=== PATIENT | male | born 1955 | race Caucasian/White ===

== ENCOUNTER 2020-05-16 01:41 | Outpatient (CLI) | payer MEDICARE, SELFPAY ==
[2020-05-17 17:16] LABS: SARS-CoV-2 RNA PCR Negative
== END 2020-05-16 01:42 | disposition home or self-care (01) ==
LOC: ANHCOVIDDT 01:41
PROVIDERS: PCP Family Medicine; Visit Provider Internal Medicine Gastroenterology
DX: Z01.812 Encounter for preprocedural laboratory examination (principal); Z20.822 Contact with and (suspected) exposure to COVID-19
CPT/HCPCS: C9803; U0003; U0005

== ENCOUNTER 2020-05-19 00:35 | Day surgery (SDC) | payer MEDICARE, SELFPAY ==
[2020-05-12 11:09] VITALS: BMI 34.2
[2020-05-19 07:02] VITALS: BP 188/98; PULSE 94; RESP 18; TEMP 36.7; O2SAT 95; BMI 33.5
[2020-05-19] MEDS: LACTATED RINGERS 1,000 ML 150 ML IV CONT (07:20)
--- NOTE | 2020-05-19 07:21 | WPDANESEPPF ---
Anes - Initial Pre Proc Eval Procedure: Operation Date: 05/19/20 08:00 Proposed Procedures p Screening Colonoscopy - Wellington Saldana MD Date/Time: 05/19/20 07:21 Surgeon: Wellington Saldana MD Pre Op Diagnosis: hx of colon polyps, hx colon CA Patient Data Age: 64 Gender: M Height: 1.73 m Weight: 100.2 kg Last Vital Signs Temp 36.7 C 05/19/20 07:02 Pulse 94 05/19/20 07:02 Resp 18 05/19/20 07:02 BP 188/98 H 05/19/20 07:02 Pulse Ox 95 05/19/20 07:02 Allergies Allergy/AdvReac Type Severity Reaction Status Date / Time atenolol AdvReac Unknown Other Verified 05/19/20 07:21 Home Medications Medication Instructions Recorded Confirmed Type duloxetine 60 mg capsule,delayed 60 mg PO DAILY #90 cap 11/20/19 05/12/20 Rx release nitroglycerin 0.4 mg sublingual 0.4 mg SUBLINGUAL Q5M PRN 02/26/20 05/12/20 History tablet amlodipine 2.5 mg tablet 2.5 mg PO DAILY #90 tablet 05/12/20 05/12/20 Rx carvedilol 25 mg tablet 25 mg PO Q12H #180 tablet 05/12/20 05/12/20 Rx furosemide 40 mg tablet 40 mg PO QAM #90 tablet 05/12/20 05/12/20 Rx isosorbide mononitrate 30 mg 30 mg PO DAILY #90 tablet 05/12/20 05/12/20 Rx tablet,extended release 24 hr losartan 50 mg tablet 50 mg PO DAILY #90 tablet 05/12/20 05/12/20 Rx rosuvastatin 20 mg tablet 20 mg PO DAILY #90 tablet 05/12/20 05/12/20 Rx sodium,potassium,mag sulfates 17.5 See Rx Instructions PO .COMPLEX 05/12/20 Rx gram-3.13 gram-1.6 gram oral soln #354 ml Patient hx anesthesia problems: none Family hx anesthesia problems: none PMFSH Past Medical History Medical History (Updated 10/29/19 @ 08:21 by Abdulaziz Weaver MD) CAD (coronary artery disease) Controlled diabetes mellitus History of colon cancer HLD (hyperlipidemia) Hypertension with heart disease Surgical History Surgical History History of cholecystectomy History of colon resection History of implantable cardiac defibrillator (ICD) Family History Family History Father Carcinoma of colon Mother Hypertension Social History Social History (Updated 02/26/20 @ 09:23 by Smitha Chang) Smoking packs per day: 1.5 Smoking cigarettes per day: 30.0 Years smoked: 5 Smoking pack-years: 7.50 Smoking status: Former smoker Tobacco type: cigarettes Second hand tobacco smoke exposure: No Smoking end date: 04/24/93 Alcohol intake: never Substance use: never Substance use type: does not use Living arrangements: alone Gender identity (if verbalized by the patient): Male Spiritual care concerns: No Anes - Eval Final PreProcedure Day of Procedure 05/19/20 07:21 Patient weight: obese Heart: regular rate and rhythm Lungs: clear to auscultation and normal air movement Airway: Mallampati scale class II Neurological: alert and oriented Last oral intake: >/= 8 hours ASA classification: III Emergent: no Anesthetic plan: proceed Anesthesia type and monitoring: general GIVS Informed Consent: The patient's anesthetic plan and its attendant risks and benefits were discussed with the patient/family/POA. Questions were solicited and answers provided to the satisfaction of the patient/family/POA.
--- NOTE | 2020-05-19 07:54 | WPDGICN ---
Assessment and Plan Assessment and plan (1) History of colon cancer: Code(s): Z85.038 - Personal history of other malignant neoplasm of large intestine Status: Acute Assessment and Plan: Patient has a history of colon cancer 5 years ago, resected in 2014. He presents today for surveillance examination he is felt to have no evidence of residual disease. Follow-up colonoscopy at 3-5 years intervals in the future is advised. (2) CAD (coronary artery disease): Code(s): I25.10 - Atherosclerotic heart disease of [place] coronary artery without angina pectoris Status: Acute GI Consult Note Consult date/time: 05/19/20 07:54 HPI: Gonsalo Alvarez Jr. is a 64 year old male Presents for screening colonoscopy. Patient has a history of colon cancer resected in 2014. At that time no lymph nodes were identified. Patient did not require subsequent chemotherapy or radiation therapy. He has done well and presents today for follow-up examination. His most recent examination several years ago revealed 1 small polyp. Patient's family history is significant that his father has had colon cancer in several family members have had colon polyps. Patient has a history of a pacemaker placement as well. He states his current weight appetite bowel movements are normal. He denies abdominal pain. He has had no bleeding or weight loss. Review of Systems Review of Systems: All systems reviewed & are unremarkable except as noted in HPI and below PMFSH Past Medical History Medical History (Updated 10/29/19 @ 08:21 by Abdulaziz Weaver MD) CAD (coronary artery disease) Controlled diabetes mellitus History of colon cancer HLD (hyperlipidemia) Hypertension with heart disease Surgical History Surgical History History of cholecystectomy History of colon resection History of implantable cardiac defibrillator (ICD) Family History Family History Father Carcinoma of colon Mother Hypertension Social History Social History (Updated 02/26/20 @ 09:23 by Smitha Chang) Smoking packs per day: 1.5 Smoking cigarettes per day: 30.0 Years smoked: 5 Smoking pack-years: 7.50 Smoking status: Former smoker Tobacco type: cigarettes Second hand tobacco smoke exposure: No Smoking end date: 04/24/93 Alcohol intake: never Substance use: never Substance use type: does not use Living arrangements: alone Gender identity (if verbalized by the patient): Male Spiritual care concerns: No Meds Home Medications and Allergies Home Medications Medication Instructions Recorded Confirmed Type duloxetine 60 mg capsule,delayed 60 mg PO DAILY #90 cap 11/20/19 05/12/20 Rx release nitroglycerin 0.4 mg sublingual 0.4 mg SUBLINGUAL Q5M PRN 02/26/20 05/12/20 History tablet amlodipine 2.5 mg tablet 2.5 mg PO DAILY #90 tablet 05/12/20 05/12/20 Rx carvedilol 25 mg tablet 25 mg PO Q12H #180 tablet 05/12/20 05/12/20 Rx furosemide 40 mg tablet 40 mg PO QAM #90 tablet 05/12/20 05/12/20 Rx isosorbide mononitrate 30 mg 30 mg PO DAILY #90 tablet 05/12/20 05/12/20 Rx tablet,extended release 24 hr losartan 50 mg tablet 50 mg PO DAILY #90 tablet 05/12/20 05/12/20 Rx rosuvastatin 20 mg tablet 20 mg PO DAILY #90 tablet 05/12/20 05/12/20 Rx sodium,potassium,mag sulfates 17.5 See Rx Instructions PO .COMPLEX 05/12/20 Rx gram-3.13 gram-1.6 gram oral soln #354 ml Allergies Allergy/AdvReac Type Severity Reaction Status Date / Time atenolol AdvReac Unknown Other Verified 05/19/20 07:21 Vital Signs Vital Signs - 24 hr 05/19/20 07:02 Temperature 98.1 F Pulse Rate 94 Respiratory Rate 18 Blood Pressure 188/98 H Pulse Oximetry 95 Exam Narrative: Exam Narrative: Physical exam reveals patient be alert. Vital signs stable. HEENT exam unremarkable. Lungs are clear to auscultation and p
[2020-05-19 08:52] VITALS: BP 144/90; PULSE 79; RESP 18; O2SAT 97
[2020-05-19 09:02] VITALS: BP 152/89; PULSE 69; RESP 18; O2SAT 97
[2020-05-19 09:08] VITALS: BP 151/89; PULSE 70; RESP 18; O2SAT 96
== END 2020-05-19 09:18 | disposition home or self-care (01) ==
PROVIDERS: PCP Family Medicine; Visit Provider Internal Medicine Gastroenterology
PROC: 0DJD8ZZ Inspection of Lower Intestinal Tract, Via Natural or Artificial Opening Endoscopic (ICD-10-PCS; CPT 45378; principal; 2020-05-19 08:00)
DX: Z12.11 Encounter for screening for malignant neoplasm of colon (principal); K64.8 Other hemorrhoids; Z85.038 Personal history of other malignant neoplasm of large intestine; Z90.49 Acquired absence of other specified parts of digestive tract; Z98.0 Intestinal bypass and anastomosis status; I25.10 Atherosclerotic heart disease of native coronary artery without angina pectoris; E11.9 Type 2 diabetes mellitus without complications; I11.9 Hypertensive heart disease without heart failure; E78.5 Hyperlipidemia, unspecified; Z95.810 Presence of automatic (implantable) cardiac defibrillator; Z87.891 Personal history of nicotine dependence; E66.9 Obesity, unspecified; Z68.33 Body mass index [BMI] 33.0-33.9, adult
CPT/HCPCS: G0105; J2001; J2704; J7120

== ENCOUNTER → 2020-08-26 10:03 | Outpatient (CLI) | payer MEDICARE, SELFPAY ==
--- NOTE | ~2020-08-26 | XR_ITS ---
EXAMINATION: XR knee LT 2V, XR knee RT 2V DATE: 08/26/2020 11:57 INDICATION: Anterior right knee pain and posterior medial left knee pain. TECHNIQUE: 1. Standing AP and lateral views of the left knee were obtained. 2. Standing AP and lateral views of the right knee were obtained.. COMPARISON: None. FINDINGS: Normal alignment at both knees. No fracture. Mild joint space narrowing and small marginal osteophyte s at the medial compartment of the left knee. Tiny marginal osteophytes at the patella on both the le ft and right with relatively preserved patellofemoral joint spaces. Soft tissues are unremarkable. No knee joint effusions. IMPRESSION: 1. Osteoarthritis, mild at the medial compartment of the left knee and minimal at the bilateral mccormick lofemoral compartments. Reviewed, dictated and finalized at location A. IMPRESSION: 1. Osteoarthritis, mild at the medial compartment of the left knee and minimal at the bilateral patellofemoral compartments.
== END ==
PROVIDERS: PCP Family Medicine; Visit Provider Family Medicine
DX: M17.0 Bilateral primary osteoarthritis of knee (principal)
CPT/HCPCS: 73560

== ENCOUNTER 2021-03-10 09:03 | Outpatient (CLI) | payer MEDICARE, SELFPAY ==
--- NOTE | ~2021-03-10 | US_ITS ---
EXAMINATION: US aorta [facility] EXAM DATE: 03/10/2021 09:31 INDICATION: Hypertension, diabetes, high cholesterol. Over 65 AAA screening. TECHNIQUE: Multiple grayscale and Doppler images of the abdominal aorta were obtained (by a technolog ist who performed the scan) and subsequently reviewed. There is no prior study for comparison. FINDINGS: Abdominal aorta is normal in caliber at 3.1 cm proximally, 2.6 cm mid aspect, 1.9 cm distally. No gentry reciable arterial sclerosis identified. The aortic bifurcation, common iliac arteries are also normal in caliber. No evidence of retroperitoneal lymphadenopathy. IMPRESSION: 1. Unremarkable abdominal aortic ultrasound exam. Reviewed, dictated and finalized at location B. KLAYER'S ASSISTANT
== END 2021-03-10 09:04 | disposition home or self-care (01) ==
PROVIDERS: PCP Family Medicine; Visit Provider Family Medicine
DX: Z13.6 Encounter for screening for cardiovascular disorders (principal)
CPT/HCPCS: 76706

== ENCOUNTER 2021-11-23 10:50 | Outpatient (CLI) | payer MEDICARE, SELFPAY ==
--- NOTE | ~2021-11-23 | XR_ITS ---
EXAMINATION: XR knee RT 3V DATE: 11/23/2021 11:16 INDICATION: Right knee pain. TECHNIQUE: 3 views of right knee were obtained. COMPARISON: Right knee radiographs 08/26/2020 FINDINGS: Bone alignment is normal. No fracture. There is mild tricompartmental osteoarthritis charac terized by tiny osteophytes. No joint space narrowing. No knee joint effusion. IMPRESSION: 1. Mild right knee osteoarthritis. Reviewed, dictated and finalized at location A.
== END 2021-11-23 10:51 | disposition home or self-care (01) ==
LOC: ANHIMG 10:53
PROVIDERS: PCP Family Medicine; Visit Provider Physician Assistant
DX: M17.11 Unilateral primary osteoarthritis, right knee (principal)
CPT/HCPCS: 73562

== ENCOUNTER 2022-03-09 07:13 | Outpatient (CLI) | payer MEDICARE, SELFPAY ==
[2022-03-09 07:39] LABS: Hematocrit 44.8 % (42.0-52.0); Mean Corpuscular HGB Conc 33.5 g/dl (32-36); Mean Corpuscular Hemoglobin 31.1 pg (26-34); Mean Corpuscular Volume 92.9 fl (80-100); Mean Platelet Volume 9.6 fl (7.4-10.4); Platelet Count Result 212 k/mm3 (150-375); Red Blood Count 4.82 M/mm3 (4.6-6.20); Red Cell Distribution Width 12.7 % (11.5-14.5); White Blood Count 5.8 K/mm3 (4.5-10.0)
[2022-03-09 08:31] LABS: Hemoglobin A1C 6.5 % (<5.7)
[2022-03-09 08:59] LABS: Alanine Aminotransferase 39 U/L (6-50); Albumin Level 4.4 g/dL (3.5-5.1); Alkaline Phosphatase 79 U/L (38-126); Anion Gap 8 mmol/L (8-16); Aspartate Amino Transferase 38 U/L (17-59); Bilirubin,Total 0.8 mg/dL (0.2-1.3); Blood Urea Nitrogen 17 mg/dL (9-20); Calcium 8.6 mg/dL (8.4-10.2); Carbon Dioxide 30 mmol/L (22-30); Chloride 102 mmol/L (98-107); Cholesterol 153 mg/dL (0-200); Estimated Glomerular Filt Rate > 60; Glucose 142 mg/dL (65-110); HDL Direct 39 mg/dL; Potassium 4.2 mmol/L (3.4-5.0); Sodium 140 mmol/L (137-145); Triglycerides 127 mg/dL (<150)
[2022-03-09 09:16] LABS: LDL Cholesterol Direct 82 mg/dL
[2022-03-09 09:36] LABS: Prostate Specific Antigen 1.4 ng/mL (< OR = 4.0)
[2022-03-09 14:31] LABS: Appearance Urine Clear (Clear); Bilirubin Urine Negative (Negative); Blood Urine Negative (Negative); Color Urine Yellow (Yellow); Glucose Urine UA Negative (Negative); Ketones Urine Negative (Negative); Leukocyte Esterase Ur Negative LEU/UL (NEGATIVE); Nitrate Urine Negative (Negative); Protein Urine Negative (Negative); Urobilinogen Urine 0.2 mg/dL (<2.0); pH Urine 5.5 (5.0-9.0)
[2022-03-09 14:46] LABS: Add Urine Microscopic? NO; Mucus Urine Rare /lpf; RBC Urine 0-2 /hpf (0-2); WBC Urine 0-3 /hpf (0-3)
== END 2022-03-09 07:14 | disposition home or self-care (01) ==
LOC: ANHLAB 07:15
PROVIDERS: PCP Family Medicine; Visit Provider Physician Assistant
DX: R35.1 Nocturia (principal); E11.9 Type 2 diabetes mellitus without complications; E78.5 Hyperlipidemia, unspecified; I11.9 Hypertensive heart disease without heart failure
CPT/HCPCS: 36415; 80053; 80061; 81003; 83036; 84153; 84443; 85027

== ENCOUNTER 2022-09-07 11:11 | Outpatient (CLI) | payer MEDICARE, SELFPAY ==
[2022-09-07 12:06] LABS: Hemoglobin A1C 6.7 % (<5.7)
[2022-09-07 12:13] LABS: Alanine Aminotransferase 40 U/L (6-50); Albumin Level 4.6 g/dL (3.5-5.1); Alkaline Phosphatase 74 U/L (38-126); Anion Gap 6 mmol/L (8-16); Aspartate Amino Transferase 36 U/L (17-59); Bilirubin,Total 0.7 mg/dL (0.2-1.3); Blood Urea Nitrogen 20 mg/dL (9-20); Calcium 8.6 mg/dL (8.4-10.2); Carbon Dioxide 30 mmol/L (22-30); Chloride 100 mmol/L (98-107); Estimated Glomerular Filt Rate > 60; Glucose 148 mg/dL (65-110); Potassium 4.1 mmol/L (3.4-5.0); Sodium 136 mmol/L (137-145)
== END 2022-09-07 11:12 | disposition home or self-care (01) ==
PROVIDERS: PCP Family Medicine; Visit Provider Family Medicine
DX: I11.9 Hypertensive heart disease without heart failure (principal); E11.9 Type 2 diabetes mellitus without complications
CPT/HCPCS: 36415; 80053; 83036

== ENCOUNTER 2023-03-28 09:42 | Outpatient (CLI) | payer MEDICARE, SELFPAY ==
[2023-03-28 10:25] LABS: Hematocrit 44.9 % (42.0-52.0); Hemoglobin 15.2 g/dL (14.0-18.0); Mean Corpuscular HGB Conc 33.9 g/dl (32-36); Mean Corpuscular Hemoglobin 31.1 pg (26-34); Mean Corpuscular Volume 91.8 fl (80-100); Mean Platelet Volume 9.6 fl (7.4-10.4); Platelet Count Result 187 k/mm3 (150-375); Red Blood Count 4.89 M/mm3 (4.6-6.20); Red Cell Distribution Width 12.4 % (11.5-14.5)
[2023-03-28 10:37] LABS: Alanine Aminotransferase 50 U/L (6-50); Albumin Level 4.5 g/dL (3.5-5.1); Alkaline Phosphatase 88 U/L (38-126); Anion Gap 9 mmol/L (8-16); Aspartate Amino Transferase 44 U/L (17-59); Bilirubin,Total 0.8 mg/dL (0.2-1.3); Blood Urea Nitrogen 18 mg/dL (9-20); Calcium 9.3 mg/dL (8.4-10.2); Carbon Dioxide 29 mmol/L (22-30); Chloride 102 mmol/L (98-107); Cholesterol 164 mg/dL (0-200); Estimated Glomerular Filt Rate > 60; Glucose 181 mg/dL (65-110); HDL Direct 44 mg/dL; Potassium 4.6 mmol/L (3.4-5.0); Sodium 140 mmol/L (137-145); Triglycerides 179 mg/dL (<150)
[2023-03-28 10:48] LABS: LDL Cholesterol Direct 82 mg/dL
[2023-03-28 10:58] LABS: Erythrocyte Sedimentation Rate 13 mm/hr (0-20)
[2023-03-28 11:06] LABS: Prostate Specific Antigen 1.4 ng/mL (< OR = 4.0)
[2023-03-28 11:48] LABS: Hemoglobin A1C 6.9 % (<5.7)
== END 2023-03-28 09:43 | disposition home or self-care (01) ==
PROVIDERS: PCP Family Medicine; Visit Provider Family Medicine
DX: E78.5 Hyperlipidemia, unspecified (principal); E11.9 Type 2 diabetes mellitus without complications; I11.9 Hypertensive heart disease without heart failure; I25.10 Atherosclerotic heart disease of native coronary artery without angina pectoris; R51.9 Headache, unspecified; R35.1 Nocturia; Z12.5 Encounter for screening for malignant neoplasm of prostate
CPT/HCPCS: 36415; 80053; 80061; 83036; 84153; 84443; 85027; 85652

== ENCOUNTER 2023-09-20 08:51 | Outpatient (CLI) | payer MEDICARE, SELFPAY ==
[2023-09-20 09:43] LABS: Appearance Urine Clear (Clear); Bilirubin Urine Negative (Negative); Blood Urine Negative (Negative); Color Urine Yellow (Yellow); Glucose Urine UA Negative (Negative); Ketones Urine Negative (Negative); Leukocyte Esterase Ur Negative LEU/UL (Negative); Nitrate Urine Negative (Negative); Protein Urine Negative (Negative); Specific Grav Ur 1.018 (1.001-1.035); pH Urine 5.5 (5.0-9.0)
[2023-09-20 09:47] LABS: Add Urine Microscopic? NO
[2023-09-20 09:59] LABS: Hemoglobin A1C 7.3 % (<5.7)
[2023-09-20 10:01] LABS: Alanine Aminotransferase 44 U/L (6-50); Albumin Level 4.5 g/dL (3.5-5.1); Alkaline Phosphatase 84 U/L (38-126); Anion Gap 8 mmol/L (4-12); Aspartate Amino Transferase 38 U/L (17-59); Bilirubin,Total 0.7 mg/dL (0.2-1.3); Blood Urea Nitrogen 14 mg/dL (9-20); Calcium 8.9 mg/dL (8.4-10.2); Carbon Dioxide 25 mmol/L (22-30); Chloride 107 mmol/L (98-107); Estimated Glomerular Filt Rate > 60; Glucose 124 mg/dL (65-110); Potassium 3.7 mmol/L (3.4-5.0); Sodium 140 mmol/L (137-145)
[2023-09-20 14:11] LABS: Creatinine Urine 131.9 mg/dL
[2023-09-20 14:14] LABS: MALB Creatinine Ratio 37.2 mg/g (0-30); Microalbumin Urine Random 49.1 mg/L (0-16.7)
== END 2023-09-20 08:52 | disposition home or self-care (01) ==
LOC: ANHLAB 08:57
PROVIDERS: PCP Family Medicine; Visit Provider Family Medicine
DX: E78.5 Hyperlipidemia, unspecified (principal); E11.9 Type 2 diabetes mellitus without complications; I11.9 Hypertensive heart disease without heart failure; I25.10 Atherosclerotic heart disease of native coronary artery without angina pectoris; R35.1 Nocturia
CPT/HCPCS: 36415; 80053; 81003; 82043; 83036

== ENCOUNTER 2024-03-18 08:37 | Outpatient (CLI) | payer MEDICARE, SELFPAY ==
[2024-03-18 09:13] LABS: Hematocrit 44.1 % (42.0-52.0); Hemoglobin 15.2 g/dL (14.0-18.0); Mean Corpuscular HGB Conc 34.5 g/dl (32-36); Mean Corpuscular Hemoglobin 31.6 pg (26-34); Mean Corpuscular Volume 91.7 fl (80-100); Mean Platelet Volume 9.6 fl (7.4-10.4); Platelet Count Result 188 k/mm3 (150-375); Red Blood Count 4.81 M/mm3 (4.6-6.20); Red Cell Distribution Width 12.8 % (11.5-14.5); White Blood Count 6.5 K/mm3 (4.5-10.0)
[2024-03-18 09:30] LABS: Alanine Aminotransferase 37 U/L (6-50); Albumin Level 4.5 g/dL (3.5-5.1); Alkaline Phosphatase 78 U/L (38-126); Anion Gap 7 mmol/L (4-12); Aspartate Amino Transferase 38 U/L (17-59); Blood Urea Nitrogen 18 mg/dL (9-20); Calcium 8.8 mg/dL (8.4-10.2); Carbon Dioxide 27 mmol/L (22-30); Chloride 105 mmol/L (98-107); Cholesterol 165 mg/dL (0-200); Estimated Glomerular Filt Rate > 60; Glucose 139 mg/dL (65-110); HDL Direct 53 mg/dL; Sodium 139 mmol/L (137-145); Triglycerides 174 mg/dL (<150)
[2024-03-18 09:41] LABS: LDL Cholesterol Direct 82 mg/dL
[2024-03-18 09:44] LABS: Hemoglobin A1C 7.3 % (<5.7)
[2024-03-18 09:54] LABS: Prostate Specific Antigen 1.6 ng/mL (< OR = 4.0)
== END 2024-03-18 08:38 | disposition home or self-care (01) ==
PROVIDERS: PCP Family Medicine; Visit Provider Physician Assistant
DX: E11.9 Type 2 diabetes mellitus without complications (principal); I11.9 Hypertensive heart disease without heart failure; I25.10 Atherosclerotic heart disease of native coronary artery without angina pectoris; Z12.5 Encounter for screening for malignant neoplasm of prostate
CPT/HCPCS: 36415; 80053; 80061; 83036; 84153; 84443; 85027; G0103

== ENCOUNTER 2024-06-07 00:36 | Day surgery (SDC) | payer MEDICARE, SELFPAY ==
[2024-05-21 15:10] VITALS: BMI 36.5
--- OUTSIDE RECORDS SUMMARY | 2024-06-07 00:41 | XMS_ITS | Referral Summary ---
Author Organization [facility] [address] [facility] [facility] [address] Address [address] [place] [address] Care Team Providers Care Associate Entertainment Editor Name Role Phone Abdulaziz Weaver MD Primary Care Provider Encounters Date Type Department Care Team Description 05/24/2024 Telephone [facility] Cardiology [facility] [facility] [address], [place] [address] Juan Hernandez MD 03/26/2024 10:45 AM PULLMAN CAR CLERK Office Visit [facility] Cardiology [address] [place] [address] [address] [place] [address] Juan Hernandez MD Presence of implantable cardioverter-defibril lator (ICD) (Primary Dx); Ventricular tachycardia (HCC) from Last 3 Months Allergies Active Allergy Reactions Criticality Noted Date Comments Atenolol Other (See comments) Low 06/01/2018 Made patient feel uneasy Medications amLODIPine (NORVASC) 2.5 mg tablet Take 1 tablet (2.5 mg total) by mouth daily Active carvediloL (COREG) 25 mg tablet Take 1 tablet (25 mg total) by mouth 2 (two) times a day with meals Active duloxetine HCl (DULOXETINE ORAL) Take 30 mg by mouth daily Active furosemide (LASIX) 40 mg tablet Take 1 tablet (40 mg total) by mouth daily Active isosorbide mononitrate ER (IMDUR) 30 mg 24 hr tablet Take 1 tablet (30 mg total) by mouth daily Active losartan (COZAAR) 50 mg tablet Take 1 tablet (50 mg total) by mouth daily Active rosuvastatin (CRESTOR) 20 mg tablet Take 1 tablet (20 mg total) by mouth daily Active ascorbic acid (VITAMIN C) 500 mg tablet,chewable Take 1 tablet/chew tab (500 mg total) by mouth 2 (two) times a day Active Active Problems Problem Noted Date Diagnosed Date Presence of implantable cardioverter-defibrillat or (ICD) 04/23/2020 Overview (08/03/2020): [employer] Single ICD. Dx; Cardiac Arrest, VT/VF. DOI 07/11/2017-[place]. [employer] or Steal remote monitoring. BATTERY ADVISORY Ventricular tachycardia 04/23/2020 Resolved Problems Problem Noted Date Diagnosed Date Resolved Date Coronary artery disease invo lving [place] coronary artery of [place] heart without angina pectoris 04/23/2020 04/23/2020 Ischemic cardiomyopathy 04/23/202003/26 Social History Tobacco Use Types Packs/Day Years Used Date Smoking Tobacco: Former Cigarettes Q uit: 1989 Smokeless Tobacco: Never Tobacco Cessation:Counseling Given: Not Answered Alcohol Use Standard Drinks/Week Comments Not Currently 0 (1 standard drink = 0.6 oz pur e alcohol) Sex and Gender Information Value Date Recorded Sex Assigned at Not on file Legal Sex Male 4:17 PM PULLMAN CAR CLERK Gender Identity Not on file Sexual Orientation Not on file Last Filed Vital Signs Vital Sign Reading Time Taken Comments Blood Pressure 118/72 03/26/2024 10:56 AM PULLMAN CAR CLERK Pulse 79 03/26/2024 10:56 AM PULLMAN CAR CLERK Temperature - - Respiratory Rate - - Oxygen Saturation 95% 03/26/2024 10: 56 AM PULLMAN CAR CLERK Inhaled Oxygen Concentration - - Weight 103.8 kg (228 lb 12.8 oz) 2023 10:56 AM PULLMAN CAR CLERK Height 172.7 cm (5' 8 ) 03/26/2024 10:5 6 AM PULLMAN CAR CLERK Body Mass Index 34.79 03/26/2024 10:56 AM PULLMAN CAR CLERK Plan of Treatment Not on file Insurance MEDICARE [facility] MEDICARE [facility] Care Teams Associate Entertainment Editor Relationship Specialty Start Date End Date Abdulaziz Weaver MD [address] [facility] [address] [facility] [address] [place] [address] PCP - General Family Medicine 02/28/20
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
--- OUTSIDE RECORDS SUMMARY | 2024-06-07 00:41 | XMS_ITS | Clinical Summary ---
Author Organization [facility] [address] Address [address] [place] [address] Care Team Providers Care Hog Cutter Name Role Phone Abdulaziz Weaver MD Primary Care Provider Allergies Active Allergy Reactions Criticality Noted Date [...] implantable cardioverter-defibrillat or (ICD) 04/23/2020 Overview (08/03/2020): [employer] Single ICD. Dx; Cardiac Arrest, VT/VF. DOI 07/11/2017-[place]. [employer] remote monitoring. BATTERY ADVISORY Ventricular tachycardia 04/23/2020 Resolved Problems Problem Noted Date Diagnosed Date Resolved Date Coronary artery disease invo lving [place] coronary artery of [place] heart without angina pectoris 04/23/2020 04/23/2020 Ischemic cardiomyopathy 04/23/202003/26 Encounters Date Type Department Care Team Description 05/24/2024 Telephone [facility] Cardiology [address] [facility] [address], [place] [address] Juan Hernandez MD 03/26/2024 10:45 AM MACHINE FEEDER FLOORPERSON Office Visit [facility] Cardiology [address] [facility] [address] [place] [address] Juan Hernandez MD Presence of implantable cardioverter-defibril lator (ICD) (Primary Dx); Ventricular tachycardia (HCC) from Last 3 Months Surgical History Surgery Date Site/Laterality Comments INSERT / REPLACE / REMOVE PACEMAKER COLON SURGERY ARTERY SURGERY CHOLECYSTECTOMY Medical History Medical History Date Comments Hypertension Diabetes mellitus (HCC) Gallstones Cancer (CMS/HCC) (HCC) Pneumonia Cataracts, bilateral Gout Family History Medical History Relation Name Comments Heart disease Brother Cancer Father Relation Name Status Comments Brother (Age 43) Father (Age 48) Mother Alive Sister Alive Social History Tobacco Use Types Packs/Day Years Used Date Smoking Tobacco: Former Cigarettes Q uit: 1989 Smokeless Tobacco: Never Tobacco Cessation:Counseling Given: Not Answered Alcohol Use Standard Drinks/Week Comments Not Currently 0 (1 standard drink = 0.6 oz pur e alcohol) Sex and Gender Information Value Date Recorded Sex Assigned at Not on file Legal Sex Male 4:17 PM MACHINE FEEDER FLOORPERSON Gender Identity Not on file Sexual Orientation Not on file Obstetrics History Last Filed Vital Signs Vital Sign Reading Time Taken Comments Blood Pressure 118/72 03/26/2024 10:56 AM MACHINE FEEDER FLOORPERSON Pulse 79 03/26/2024 10:56 AM MACHINE FEEDER FLOORPERSON Temperature - - Respiratory Rate - - Oxygen Saturation 95% 03/26/2024 10: 56 AM MACHINE FEEDER FLOORPERSON Inhaled Oxygen Concentration - - Weight 103.8 kg (228 lb 12.8 oz) 2023 10:56 AM MACHINE FEEDER FLOORPERSON Height 172.7 cm (5' 8 ) 03/26/2024 10:5 6 AM MACHINE FEEDER FLOORPERSON Body Mass Index 34.79 03/26/2024 10:56 AM MACHINE FEEDER FLOORPERSON Plan of Treatment Health Maintenance Due Date Last Done Comments Colon Cancer Screening-Colonoscopy 1955 Depression Screening 1953 Fall Risk Assessment 1955 Hepatitis C Screening 1955 DTaP/Tdap/Td Vaccine (1 - Tdap) 1964 Hepatitis B Screening 1971 Zoster Vaccine (1 of 2) 2003 Abdominal Aortic Aneurysm (AAA) Screen 2018 Pneumococcal vaccine 65+ (1 of 1 - PCV) 2018 Well Visit 65+ 2018 Influenza Vaccine (#1) 2023 Insurance MEDICARE [facility] MEDICARE [facility] Care Teams Hog Cutter Relationship Specialty Start Date End Date Abdulaziz Weaver MD [address] [facility] [address] [place] [address] PCP - General Family Medicine 02/28/20
[2024-06-07 06:24] VITALS: BP 147/88; PULSE 91; RESP 16; TEMP 36.6; O2SAT 97; BMI 33.9
[2024-06-07] MEDS: LACTATED RINGERS 1,000 ML 150 ML IV CONT (06:40)
--- NOTE | 2024-06-07 06:58 | P.PNAN_ITS ---
Anes - Initial Pre Proc Eval Procedure: Operation Date: 06/07/24 07:30 Proposed Procedures p Colonoscopy - Salinas Contreras MD Date/Time: 06/07/24 06:58 Surgeon: Salinas Contreras MD Pre Op Diagnosis: personal hx of melignant neoplasm of large intesti Patient Data Age: 69 Gender: M Height: 1.73 m Weight: 101.2 kg Last Vital Signs Temp 36.6 C 06/07/24 06:24 Pulse 91 06/07/24 06:24 Resp 16 06/07/24 06:24 BP 147/88 H 06/07/24 06:24 Pulse Ox 97 06/07/24 06:24 O2 Del Method Room Air 06/07/24 06:24 Allergies Allergy/AdvReac Type Severity Reaction Status Date / Time atenolol AdvReac Unknown Other Verified 06/07/24 06:22 Home Medications ?Medication ?Instructions ?Recorded ?Confirmed ?Type carvedilol 25 mg tablet 25 mg PO Q12H #180 tabs 08/29/23 06/07/24 Rx losartan 50 mg tablet See Rx Instructions .Route 11/27/23 06/07/24 Rx .COMPLEX #90 tabs rosuvastatin 20 mg tablet 20 mg PO DAILY #90 tabs 11/27/23 06/07/24 Rx amlodipine 2.5 mg tablet See Rx Instructions .Route 01/24/24 06/07/24 Rx .COMPLEX #90 tabs ascorbic acid (vitamin C) 500 mg 500 mg PO DAILY 05/21/24 06/07/24 History chewable tablet (Acerola C) furosemide 40 mg tablet 40 mg PO QAM #90 tabs 05/22/24 06/07/24 Rx isosorbide mononitrate 30 mg 30 mg PO DAILY #90 tabs 05/22/24 06/07/24 Rx tablet,extended release 24 hr Patient hx anesthesia problems: none Family hx anesthesia problems: none Results Review: All pre-operative results and documents have been reviewed as part of the pre- operative evaluation. [facility]LY [facility] Past Medical History Medical History Macular hole, both eyes Epiretinal membrane (ERM) of left eye Obesity History of colon cancer HLD (hyperlipidemia) CAD (coronary artery disease) Hypertension with heart disease Controlled diabetes mellitus Surgical History Surgical History History of colon resection History of implantable cardiac defibrillator (ICD) History of cholecystectomy Family History Family History Father Carcinoma of colon Mother Hypertension Social History Social History Smoking packs per day: 0 Smoking cigarettes per day: 0.0 Years smoked: 6 Smoking pack-years: 0.00 Smoking status: Former smoker Tobacco type: cigarettes Second hand tobacco smoke exposure: No Smoking end date: 04/24/93 Alcohol intake: never Substance use: never Substance use type: does not use Living arrangements: alone Occupation/Education: retired Gender identity (if verbalized by the patient): Male Spiritual care concerns: No Anes - Eval Final PreProcedure Day of Procedure 06/07/24 06:58 Patient weight: obese Heart: regular rate and rhythm Lungs: clear to auscultation Airway: Mallampati scale class II Neurological: alert and oriented Last oral intake: >/= 8 hours ASA classification: III Emergent: no Anesthetic plan: proceed Anesthesia type and monitoring: general GIVS and standard monitoring Results Review: All pre-operative results and documents have been reviewed as part of the pre- operative evaluation. Informed Consent: The patient's anesthetic plan and its attendant risks and benefits were discus sed with the patient/family/POA. Questions were solicited and answers provided to the satisfaction of the patient/family/POA.
--- NOTE | 2024-06-07 07:36 | PM.IMHP ---
H&P: HPI History of Present Illness Date/Time: 06/07/24 07:36 Chief Complaint: History of colon cancer Narrative: the patient comes for surveillance colonoscopy. He had a colon cancer resected in 2014. In addition, the patient has been experiencing diarrhea since Thanks, almost constantly requiring antidiarrheals. There is no unintentional weight loss or rectal bleeding Review of Systems Review of Systems: All systems reviewed & are unremarkable except as noted in HPI and below PMFSH Past Medical History Medical History Macular hole, both eyes Epiretinal membrane (ERM) of left eye Obesity History of colon cancer HLD (hyperlipidemia) CAD (coronary artery disease) Hypertension with heart disease Controlled diabetes mellitus Surgical History Surgical History History of colon resection History of implantable cardiac defibrillator (ICD) History of cholecystectomy Family History Family History Father Carcinoma of colon Mother Hypertension Social History Social History Smoking packs per day: 0 Smoking cigarettes per day: 0.0 Years smoked: 6 Smoking pack-years: 0.00 Smoking status: Former smoker Tobacco type: cigarettes Second hand tobacco smoke exposure: No Smoking end date: 04/24/93 Alcohol intake: never Substance use: never Substance use type: does not use Living arrangements: alone Occupation/Education: retired Gender identity (if verbalized by the patient): Male Spiritual care concerns: No Meds Home Medications and Allergies Home Medications ?Medication ?Instructions ?Recorded ?Confirmed ?Type carvedilol 25 mg tablet 25 mg PO Q12H #180 tabs 08/29/23 06/07/24 Rx losartan 50 mg tablet See Rx Instructions .Route 11/27/23 06/07/24 Rx .COMPLEX #90 tabs rosuvastatin 20 mg tablet 20 mg PO DAILY #90 tabs 11/27/23 06/07/24 Rx amlodipine 2.5 mg tablet See Rx Instructions .Route 01/24/24 06/07/24 Rx .COMPLEX #90 tabs ascorbic acid (vitamin C) 500 mg 500 mg PO DAILY 05/21/24 06/07/24 History chewable tablet (Acerola C) furosemide 40 mg tablet 40 mg PO QAM #90 tabs 05/22/24 06/07/24 Rx isosorbide mononitrate 30 mg 30 mg PO DAILY #90 tabs 05/22/24 06/07/24 Rx tablet,extended release 24 hr Allergies Allergy/AdvReac Type Severity Reaction Status Date / Time atenolol AdvReac Unknown Other Verified 06/07/24 06:22 Vital Signs Vital Signs - 24 hr 06/07/24 06:24 Temperature 97.8 F Pulse Rate 91 Respiratory Rate 16 Blood Pressure 147/88 H Pulse Oximetry 97 Oxygen Delivery Room Air Exam Const: General: cooperative and healthy appearing Resp: Effort & Inspection: normal respiratory effort and able to speak in complete sentences Auscultation: clear to auscultation bilaterally Cardio: Rate: regular rate Rhythm: regular rhythm GI: Inspection: normal to inspection GI Palp: No No hepatosplenomegaly present Auscultation: normal bowel sounds Rectal Exam: deferred Skin: General skin exam: normal color Psych: Appearance: grossly normal Mental Status: mental status grossly normal Assessment and Plan Assessment and plan (1) History of colon cancer: Code(s): Z85.038 - Personal history of other malignant neoplasm of large intestine Status: Acute Assessment and Plan: The patient is deemed a good candidate for the procedure. Consent signed. Will proceed.
[2024-06-07 07:58] VITALS: BP 125/75; PULSE 76; RESP 15; O2SAT 97
[2024-06-07 08:08] VITALS: BP 137/87; PULSE 79; RESP 20; O2SAT 100
[2024-06-07 08:18] VITALS: BP 142/92; PULSE 80; RESP 20; O2SAT 100
== END 2024-06-07 08:30 | disposition home or self-care (01) ==
PROVIDERS: PCP Family Medicine; Referring Provider Physician Assistant; Visit Provider Internal Medicine Gastroenterology
PROC: 0DJD8ZZ Inspection of Lower Intestinal Tract, Via Natural or Artificial Opening Endoscopic (ICD-10-PCS; CPT 45378; principal; 2024-06-07 07:30)
DX: R19.7 Diarrhea, unspecified (principal); K63.5 Polyp of colon; Z85.038 Personal history of other malignant neoplasm of large intestine; Z87.891 Personal history of nicotine dependence; E66.9 Obesity, unspecified; Z68.33 Body mass index [BMI] 33.0-33.9, adult
CPT/HCPCS: 45385; 45380; 88305; J2003; J2704; J7120

== ENCOUNTER 2024-09-26 08:00 | Outpatient (CLI) | payer MEDICARE, SELFPAY ==
--- OUTSIDE RECORDS SUMMARY | 2024-09-26 08:07 | XMS_ITS | Referral Summary ---
Author Organization [facility] [place] [address] Address [address] [place] [address] Care Team Providers Care Spinneret Cleaner Name Role Phone Abdulaziz Weaver MD Primary Care Provider Encounters Date Type Department Care Team Description 09/10/2024 7:15 AM CDT Ancillary Procedure [facility] Medical Group Cardiology [address] [place] [phone] Ventricular tachycardia (HCC); VF (ventricular fibrillation) (HCC) from Last 3 Months Allergies Active [...] Single ICD. Dx; Cardiac Arrest, VT/VF. DOI 07/11/2017-[place]. [employer] remote monitoring. BATTERY ADVISORY Ventricular tachycardia 04/23/2020 Resolved Problems Problem Noted Date Diagnosed Date Resolved Date Coronary artery disease invo lving [place] coronary artery of [place] heart without angina pectoris 04/23/2020 04/23/2020 Ischemic [...] on file Legal Sex Male 4:17 PM HOUSING PROJECT MANAGER Gender Identity Not on file Sexual Orientation Not on file Last Filed Vital Signs Vital Sign Reading Time Taken Comments Blood Pressure 118/72 03/26/2024 10:56 AM HOUSING PROJECT MANAGER Pulse 79 03/26/2024 10:56 AM HOUSING PROJECT MANAGER Temperature - - Respiratory Rate - - Oxygen Saturation 95% 03/26/2024 10: 56 AM HOUSING PROJECT MANAGER Inhaled Oxygen Concentration - - Weight 103.8 kg (228 lb 12.8 oz) 2023 10:56 AM HOUSING PROJECT MANAGER Height 172.7 cm (5' 8) 03/26/2024 10:5 6 AM HOUSING PROJECT MANAGER Body Mass Index 34.79 03/26/2024 10:56 AM HOUSING PROJECT MANAGER Plan of Treatment Not on file Insurance MEDICARE [facility] MEDICARE [facility] Care Teams Spinneret Cleaner Relationship Specialty Start Date End Date Abdulaziz Weaver MD [address] [address] PCP - General Family Medicine 02/28/20
--- OUTSIDE RECORDS SUMMARY | 2024-09-26 08:07 | XMS_ITS | Clinical Summary ---
Author Organization [facility] [place] [address] Address [address] [place] [address] Care Team Providers Care Eap Specialist Name Role Phone Abdulaziz Weaver MD Primary [...] Resolved Date Coronary artery disease invo lving [place] coronary artery of [place] heart without angina pectoris 04/23/2020 04/23/2020 Ischemic cardiomyopathy 04/23/202003/26 Encounters Date Type Department Care Team Description 09/10/2024 7:15 AM CDT Ancillary Procedure [facility] Medical Group Cardiology [address] [place] [phone] Ventricular tachycardia (HCC); VF (ventricular fibrillation) (HCC) from Last 3 Months Surgical History Surgery Date Site/Laterality Comments INSERT / REPLACE / REMOVE PACEMAKER COLON SURGERY ARTERY SURGERY CHOLECYSTECTOMY Medical History Medical History Date Comments Hypertension Diabetes mellitus (HCC) Gallstones Cancer (HCC) Pneumonia Cataracts, bilateral Gout Family History [...] on file Legal Sex Male 4:17 PM MUSIC LEADER Gender Identity Not on file Sexual Orientation Not on file Obstetrics History Last Filed Vital Signs Vital Sign Reading Time Taken Comments Blood Pressure 118/72 03/26/2024 10:56 AM MUSIC LEADER Pulse 79 03/26/2024 10:56 AM MUSIC LEADER Temperature - - Respiratory Rate - - Oxygen Saturation 95% 03/26/2024 10: 56 AM MUSIC LEADER Inhaled Oxygen Concentration - - Weight 103.8 kg (228 lb 12.8 oz) 2023 10:56 AM MUSIC LEADER Height 172.7 cm (5' 8) 03/26/2024 10:5 6 AM MUSIC LEADER Body Mass Index 34.79 03/26/2024 10:56 AM MUSIC LEADER Plan of Treatment Health Maintenance Due Date Last Done Comments Colon Cancer Screening-Colonoscopy 1955 Depression Screening 1953 Fall Risk Assessment 1953 Hepatitis C Screening 1955 DTaP/Tdap/Td Vaccine (1 - Tdap) 1964 Hepatitis B Screening 1971 Pneumococcal vaccine 65+ (1 of 1 - PCV) 2003 Zoster Vaccine (1 of 2) 2003 Abdominal Aortic Aneurysm (AAA) Screen 2018 Well Visit 65+ 2018 Influenza Vaccine (Season Ended) 2024 Insurance MEDICARE [facility] MEDICARE [facility] Care Teams Eap Specialist Relationship Specialty Start Date End Date Abdulaziz Weaver MD [address] [facility] [address] [place] [address] PCP - General Family Medicine 02/28/20
--- OUTSIDE RECORDS SUMMARY | 2024-09-26 08:07 | XMS_ITS | Continuity of Care Document ---
Author Organization [facility] Address [address] [place] [address] Phone Care Team Providers Care Flatbed Press Operator Name Role Phone Steller OD, Charlie Unavailable [...] Date Provider Providers Copied on Encounter [facility], [address] [place] [address], [place], [address], [place] tel:[phone] [facility] No Information 7 Steller OD Charlie. [address] [facility] [place], [address], [place]. tel:[phone] OFFICE/OUTPA TIENT VISIT, [facility], [facility] [address] [place] [address] [address], [place], [address], [place] tel:[phone] [facility] Glaucoma Eval (chief complaint) Glaucoma suspect, bilateral 7 Steller OD Charlie. [address], [place], [address], . tel:[phone] Referring Provider: Charlie Puentes OD A, [address] [facility] A, [place], [address]. tel:[phone] [facility], [address], [facility] [place], [address], [place] tel:[phone] [facility] Blurry vision (chief complaint) ABM (anterior basement membrane) dystrophyAge-re lated nuclear cataract, bilateralRegula r astigmatism, bilateralPresby opiaGlaucoma suspect, bilateral 7 Deloris OD Charlie. [address] [facility], [place], [address], . tel:[phone] Referring Provider: Charlie Puentes OD A, [address] [facility] A, [place], [address]. tel:[phone] Family History Family Member Type Diagnosis Age At Onset Mother Problem (finding) cataract Payers Payer name Insurance type Covered constitution party ID Authoriza tion(s) [place] [facility] Medicaid [facility] [id number] Social History Type Description Quantity Date Captured [...] reading the road signs. 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 was [...]
[2024-09-26 09:01] LABS: Alanine Aminotransferase 56 U/L (6-50); Albumin Level 4.5 g/dL (3.5-5.1); Alkaline Phosphatase 99 U/L (38-126); Anion Gap 6 mmol/L (4-12); Aspartate Amino Transferase 54 U/L (17-59); Bilirubin,Total 0.9 mg/dL (0.2-1.3); Blood Urea Nitrogen 15 mg/dL (9-20); Calcium 9.4 mg/dL (8.4-10.2); Carbon Dioxide 27 mmol/L (22-30); Chloride 102 mmol/L (98-107); Estimated Glomerular Filt Rate > 60; Glucose 214 mg/dL (65-110); Potassium 4.1 mmol/L (3.4-5.0); Sodium 135 mmol/L (137-145); Total Protein 7.7 g/dL (6.3-8.2)
[2024-09-26 09:06] LABS: Hemoglobin A1C 8.2 % (<5.7)
== END 2024-09-26 08:01 | disposition home or self-care (01) ==
PROVIDERS: PCP Family Medicine; Visit Provider Physician Assistant
DX: I11.9 Hypertensive heart disease without heart failure (principal); E11.9 Type 2 diabetes mellitus without complications
CPT/HCPCS: 36415; 80053; 83036

== ENCOUNTER 2024-10-10 14:03 | Outpatient (CLI) | payer MEDICARE, SELFPAY ==
--- OUTSIDE RECORDS SUMMARY | 2024-10-10 14:22 | XMS_ITS | Clinical Summary ---
Author Organization [facility] [place] [address] Address [address] [place] [address] Care Team Providers Care Entry Level Sales Associate Name Role Phone Abdulaziz Weaver MD Primary [...] Resolved Date Coronary artery disease invo lving [place] coronary artery of [place] heart without angina pectoris 04/23/2020 04/23/2020 Ischemic cardiomyopathy 04/23/202003/26 Encounters Date Type Department Care Team Description 09/10/2024 7:15 AM CDT Ancillary Procedure [facility] Medical Group Cardiology [address] [place] [phone] Ventricular tachycardia (HCC); VF (ventricular fibrillation) (HCC) [...] on file Legal Sex Male 4:17 PM HUMAN RESOURCE INTERNSHIP Gender Identity Not on file Sexual Orientation Not on file Obstetrics History Last Filed Vital Signs Vital Sign Reading Time Taken Comments Blood Pressure 118/72 03/26/2024 10:56 AM HUMAN RESOURCE INTERNSHIP Pulse 79 03/26/2024 10:56 AM HUMAN RESOURCE INTERNSHIP Temperature - - Respiratory Rate - - Oxygen Saturation 95% 03/26/2024 10: 56 AM HUMAN RESOURCE INTERNSHIP Inhaled Oxygen Concentration - - Weight 103.8 kg (228 lb 12.8 oz) 2023 10:56 AM HUMAN RESOURCE INTERNSHIP Height 172.7 cm (5' 8) 03/26/2024 10:5 6 AM HUMAN RESOURCE INTERNSHIP Body Mass Index 34.79 03/26/2024 10:56 AM HUMAN RESOURCE INTERNSHIP Plan of Treatment Health Maintenance Due Date [...] Influenza Vaccine (Season Ended) 2024 Insurance MEDICARE [facility] MEDICARE [facility] Care Teams Entry Level Sales Associate Relationship Specialty Start Date End Date Abdulaziz Weaver MD [address] [facility] [address] [place] [address] PCP - General Family Medicine 02/28/20
--- OUTSIDE RECORDS SUMMARY | 2024-10-10 14:22 | XMS_ITS | Continuity of Care Document ---
Author Organization [facility] Address [address] [place] [address] Phone Care Team Providers Care Well Tester Name Role Phone Steller OD, Charlie Unavailable [...] Date Provider Providers Copied on Encounter [facility], [address] [place] [address], [place], [address], [place] tel:[phone] [facility] No Information 7 Steller OD Charlie. [address] [facility], [address], [place]. tel:[phone] OFFICE/OUTPA TIENT VISIT, [facility], [facility] [address] [place] [address] 100, [place], [address], [place] tel:[phone] [facility] Glaucoma Eval (chief complaint) Glaucoma suspect, bilateral 7 Steller OD Charlie. [address], [place], [address], . tel:[phone] Referring Provider: Charlie Puentes OD A, [address] [facility] A, [place], [address]. tel:[phone] [facility], [address], [facility] [place], [address], [place] tel:[phone] [facility] Blurry vision (chief complaint) ABM (anterior basement membrane) dystrophyAge-re lated nuclear cataract, bilateralRegula r astigmatism, bilateralPresby opiaGlaucoma suspect, bilateral 7 Deloris OD Charlie. [address] [facility], [place], [address], . tel:[phone] Referring Provider: Charlie Puentes OD A, [address] [facility] A, [place], [address]. tel:[phone] Family History Family Member Type Diagnosis Age At Onset Mother Problem (finding) cataract Payers Payer name Insurance type Covered green party ID Authoriza tion(s) [place] [facility] Medicaid [facility] [id number] Social History Type Description Quantity Date Captured [...] reading the road signs. 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 was [...]
--- OUTSIDE RECORDS SUMMARY | 2024-10-10 14:22 | XMS_ITS | Referral Summary ---
Author Organization [facility] [place] [address] Address [address] [place] [address] Care Team Providers Care Music Critic Name Role Phone Abdulaziz Weaver MD Primary Care Provider Encounters Date Type Department Care Team Description 09/10/2024 7:15 AM CDT Ancillary Procedure [facility] Medical Group Cardiology [address] [place] [phone] Ventricular tachycardia (HCC); VF (ventricular fibrillation) [...] Single ICD. Dx; Cardiac Arrest, VT/VF. DOI 07/11/2017-[place]. [employer] remote monitoring. BATTERY ADVISORY Ventricular tachycardia 04/23/2020 Resolved Problems Problem Noted Date Diagnosed Date Resolved Date Coronary artery disease invo lving [place] coronary artery of [place] heart without angina pectoris 04/23/2020 04/23/2020 Ischemic [...] on file Legal Sex Male 4:17 PM PEDIATRIC PATHOLOGIST Gender Identity Not on file Sexual Orientation Not on file Last Filed Vital Signs Vital Sign Reading Time Taken Comments Blood Pressure 118/72 03/26/2024 10:56 AM PEDIATRIC PATHOLOGIST Pulse 79 03/26/2024 10:56 AM PEDIATRIC PATHOLOGIST Temperature - - Respiratory Rate - - Oxygen Saturation 95% 03/26/2024 10: 56 AM PEDIATRIC PATHOLOGIST Inhaled Oxygen Concentration - - Weight 103.8 kg (228 lb 12.8 oz) 2023 10:56 AM PEDIATRIC PATHOLOGIST Height 172.7 cm (5' 8) 03/26/2024 10:5 6 AM PEDIATRIC PATHOLOGIST Body Mass Index 34.79 03/26/2024 10:56 AM PEDIATRIC PATHOLOGIST Plan of Treatment Not on file Insurance MEDICARE [facility] MEDICARE [facility] Care Teams Music Critic Relationship Specialty Start Date End Date Abdulaziz Weaver MD [address] [address] PCP - General Family Medicine 02/28/20
[2024-10-12 01:59] LABS: Gliadin AB, IgG <1.0 U/mL
[2024-10-14 17:39] LABS: Immunoglobulin A 173 mg/dL (70-320); TTG IGA AB <1.0 U/mL
== END 2024-10-10 14:04 | disposition home or self-care (01) ==
PROVIDERS: PCP Family Medicine; Visit Provider Nurse Practitioner Family
DX: R19.7 Diarrhea, unspecified (principal)
CPT/HCPCS: 36415; 82784

== ENCOUNTER 2024-10-11 15:46 | Outpatient (CLI) | payer MEDICARE, SELFPAY ==
[2024-10-11 17:45] LABS: Toxigenic C. Diff NEGATIVE (NEGATIVE)
== END 2024-10-11 15:47 | disposition home or self-care (01) ==
PROVIDERS: PCP Family Medicine; Visit Provider Nurse Practitioner Family
DX: R19.7 Diarrhea, unspecified (principal)
CPT/HCPCS: 82653; 82705; 87045; 87269; 87427; 87449; 87493